=== PATIENT | female | born 1950 | race Caucasian/White ===

== ENCOUNTER → 2016-12-31 | Outpatient (CLI) | payer MEDICARE, MEDICAID ==
[~2016-12-31] MED LIST: ASPI-496 PO; ATOR40TA78 PO; METO25TA2 PO; REGADENOSON 0.4 MG/5 ML SYRINGE ONE; TRAM50TA2 PO
== END | disposition home or self-care (01) ==
LOC: CFH 07:50
PROVIDERS: ATTEND Internal Medicine Cardiovascular Disease
DX: I08.3 Combined rheumatic disorders of mitral, aortic and tricuspid valves (principal); I37.1 Nonrheumatic pulmonary valve insufficiency; I51.7 Cardiomegaly; I25.2 Old myocardial infarction; Z95.5 Presence of coronary angioplasty implant and graft; Z86.73 Personal history of transient ischemic attack (TIA), and cerebral infarction without residual deficits
CPT/HCPCS: 78452; 93017; 93306; A9502; J2785

== ENCOUNTER 2017-05-30 11:21 | Emergency (ER) | payer MEDICARE, MEDICAID ==
[~2017-05-30] VITALS: Ht 157.5 cm; Wt 85.2 kg
[~2017-05-30 11:21] MED LIST changes: -REGADENOSON 0.4 MG/5 ML SYRINGE ONE
[2017-05-30 11:36] VITALS: BP 140/79
== END 2017-05-30 12:46 | disposition home or self-care (01) ==
LOC: ED 12:40
DX: R22.9 Localized swelling, mass and lump, unspecified (principal); I25.2 Old myocardial infarction; Z86.73 Personal history of transient ischemic attack (TIA), and cerebral infarction without residual deficits
CPT/HCPCS: 99281

== ENCOUNTER → 2017-07-16 | Outpatient (CLI) | payer MEDICARE, MEDICAID | END | disposition home or self-care (01) | LOC: CFH 12:42 | PROVIDERS: ATTEND Surgery | DX: N60.01 Solitary cyst of right breast (principal); Z80.3 Family history of malignant neoplasm of breast ==

== ENCOUNTER 2017-08-26 09:02 | Emergency (ER) | payer MEDICARE, MEDICAID ==
[~2017-08-26] VITALS: Ht 154.9 cm; Wt 80.9 kg
[2017-08-26 09:08] VITALS: BP 116/83
== END 2017-08-26 10:44 | disposition home or self-care (01) ==
LOC: ED 09:51
DX: J20.9 Acute bronchitis, unspecified (principal); J02.9 Acute pharyngitis, unspecified; I25.2 Old myocardial infarction
CPT/HCPCS: 71046; 99284

== ENCOUNTER 2018-07-21 10:15 | Emergency (ER) | payer MEDICARE, MEDICAID ==
[~2018-07-21] VITALS: Ht 154.9 cm; Wt 84.7 kg
[2018-07-21 10:34] VITALS: BP 160/87
== END 2018-07-21 11:50 | disposition home or self-care (01) ==
LOC: ED 11:45
DX: G56.02 Carpal tunnel syndrome, left upper limb (principal); I25.2 Old myocardial infarction; Z87.891 Personal history of nicotine dependence
CPT/HCPCS: 29260; 99283

== ENCOUNTER → 2018-07-21 | Outpatient (CLI) | payer MEDICARE, MEDICAID | END | disposition home or self-care (01) | LOC: RAD 09:19 | PROVIDERS: ATTEND Nurse Practitioner Family | DX: M51.37 Other intervertebral disc degeneration, lumbosacral region (principal); M48.56XA Collapsed vertebra, not elsewhere classified, lumbar region, initial encounter for fracture | CPT/HCPCS: 72110 ==

== ENCOUNTER 2018-10-23 11:59 | Emergency (ER) | payer MEDICARE, MEDICAID ==
[~2018-10-23] VITALS: Ht 157.5 cm; Wt 85.1 kg
[2018-10-23 12:03] VITALS: BP 149/108
--- NOTE | 2018-10-23 13:15 | NUR ---
D/C INSTRUCTIONS, RX, AND F/U APPT RV'WD WITH PT, PT VERBALIZES UNDERSTANDING. AMBULATED OUT OF ED WITHOUT DIFFICULTY.
== END 2018-10-23 13:18 | disposition home or self-care (01) ==
LOC: ED 13:05
DX: L02.416 Cutaneous abscess of left lower limb (principal); I25.2 Old myocardial infarction
CPT/HCPCS: 10060; 99283

== ENCOUNTER → 2020-01-11 | Outpatient (CLI) | payer MEDICARE, MEDICAID ==
[2020-01-11 10:27] LABS: BASOPHILS # (AUTO) 0.03 x10^3/uL (0-0.1); BASOPHILS % (AUTO) 1 % (0-1); EOSINOPHILS # (AUTO) 0.19 x10^3/uL (0-0.4); EOSINOPHILS % (AUTO) 3 % (1-7); LYMPHOCYTES % (AUTO) 27 % (22-44); MD NO; MEAN CORPUSCULAR HGB CONC 32.4 g/dL (32.4-35.8); MEAN CORPUSCULAR VOLUME 86.4 fL (80-100); MEAN PLATELET VOLUME 8.7 fL (7.4-10.4); MONOCYTES # (AUTO) 0.34 x10^3/uL (0.2-0.8); MONOCYTES % (AUTO) 6 % (2-9); NEUTROPHILS # (AUTO) 3.42 x10^3/uL (1.8-6.8); NEUTROPHILS % (AUTO) 63 % (42-75); PLATELET COUNT 246 x10^3/uL (130-400); RED BLOOD COUNT 5.31 x10^6/uL (3.82-5.3); RED CELL DISTRIBUTION WIDTH 13.6 % (9.6-15.2)
== END | disposition home or self-care (01) ==
LOC: LAB 09:51
PROVIDERS: ATTEND Nurse Practitioner Family
DX: I25.10 Atherosclerotic heart disease of native coronary artery without angina pectoris (principal); I10 Essential (primary) hypertension; R51 Headache; M85.9 Disorder of bone density and structure, unspecified
CPT/HCPCS: 36415; 85025

== ENCOUNTER 2020-02-06 09:00 | Emergency (ER) | payer MEDICARE, MEDICAID ==
[~2020-02-06] VITALS: Ht 157.5 cm; Wt 81.6 kg
[2020-02-06 09:05] VITALS: BP 151/85
--- NOTE | 2020-02-06 10:01 | NUR ---
PT RESTING IN [facility]. PT'S AOX4. RESPS EVEN AND UNLABORED.
--- NOTE | 2020-02-06 10:16 | NUR ---
LAB AT BEDSIDE AT THIS TIME.
[2020-02-06 10:34] LABS: BASOPHILS # (AUTO) 0.02 x10^3/uL (0-0.1); BASOPHILS % (AUTO) 1 % (0-1); EOSINOPHILS # (AUTO) 0.25 x10^3/uL (0-0.4); EOSINOPHILS % (AUTO) 5 % (1-7); LYMPHOCYTES # (AUTO) 1.27 x10^3/uL (1-3.4); LYMPHOCYTES % (AUTO) 27 % (22-44); MD NO; MEAN CORPUSCULAR HEMOGLOBIN 27.8 pg (27.0-34.8); MEAN CORPUSCULAR HGB CONC 32.5 g/dL (32.4-35.8); MEAN CORPUSCULAR VOLUME 85.7 fL (80-100); MEAN PLATELET VOLUME 8.8 fL (7.4-10.4); MONOCYTES # (AUTO) 0.34 x10^3/uL (0.2-0.8); MONOCYTES % (AUTO) 7 % (2-9); NEUTROPHILS # (AUTO) 2.89 x10^3/uL (1.8-6.8); NEUTROPHILS % (AUTO) 61 % (42-75); PLATELET COUNT 244 x10^3/uL (130-400); RED BLOOD COUNT 5.25 x10^6/uL (3.82-5.3); RED CELL DISTRIBUTION WIDTH 13.3 % (9.6-15.2)
[2020-02-06 10:49] LABS: ANION GAP 6 mmol/L (5-15); CHLORIDE 109 mmol/L (98-107)
--- NOTE | 2020-02-06 11:45 | NUR ---
Patient given discharge instructions and they have confirmed that they understand the instructions. Patient ambulatory with steady gait.
== END 2020-02-06 11:46 | disposition home or self-care (01) ==
LOC: ED 09:27
DX: L03.032 Cellulitis of left toe (principal); Z87.891 Personal history of nicotine dependence
CPT/HCPCS: 36415; 80048; 85025; 99283; 99284

== ENCOUNTER 2020-02-15 13:15 | Emergency (ER) | payer MEDICARE, MEDICAID ==
[~2020-02-15] VITALS: Ht 157.5 cm; Wt 80.7 kg
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
[2020-02-15 13:54] VITALS: BP 126/61
--- NOTE | 2020-02-15 15:05 | NUR ---
PT AMBULATORY TO RN DESK, FULLY DRESSED, REQUESTING DC. DC INSTRUCTIONS DISCUSSED W/ PT; UNDERSTANDING VERBALIZED.
== END 2020-02-15 15:12 | disposition home or self-care (01) ==
LOC: ED 14:21
DX: L03.313 Cellulitis of chest wall (principal); Z87.891 Personal history of nicotine dependence
CPT/HCPCS: 99283

== ENCOUNTER → 2020-02-19 | Outpatient (CLI) | payer MEDICARE, MEDICAID | END | disposition home or self-care (01) | LOC: CFH 12:13 | PROVIDERS: ATTEND Nurse Practitioner Family | DX: R92.1 Mammographic calcification found on diagnostic imaging of breast (principal) | CPT/HCPCS: 77066; G0279 ==

== ENCOUNTER 2020-05-14 07:21 | Emergency (ER) | payer MEDICARE, MEDICAID ==
[~2020-05-14] VITALS: Ht 154.9 cm; Wt 72.0 kg
--- NOTE | 2020-05-14 07:40 | NUR ---
PT TO XRAY.
--- NOTE | 2020-05-14 08:05 | NUR ---
PT BACK FROM XRAY. SITTING IN BED WATCHING TV, NAD, VSS. NO ADDITIONAL NEEDS AT THIS TIME. CALL LIGHT WITHIN REACH, FALL PRECAUTIONS IN PLACE. NO ADDITIONAL NEEDS AT THIS TIME.
[2020-05-14 09:02] VITALS: BP 138/75
--- NOTE | 2020-05-14 09:02 | NUR ---
PT SITTING IN BED COMFORTABLY. NAD, VSS. ERP AT BEDSIDE DISCUSSING D/C PLAN AND FOLLOW UP. CALL LIGHT WITHIN REACH, FALL PRECAUTIONS IN PLACE. NO ADDITIONAL NEEDS AT THIS TIME.
--- NOTE | 2020-05-14 09:21 | NUR ---
Patient given discharge instructions and they have confirmed that they understand the instructions. Patient ambulatory with steady gait.
== END 2020-05-14 09:24 | disposition home or self-care (01) ==
LOC: ED 08:44
DX: S22.080A Wedge compression fracture of T11-T12 vertebra, initial encounter for closed fracture (principal); S32.010A Wedge compression fracture of first lumbar vertebra, initial encounter for closed fracture; S32.050A Wedge compression fracture of fifth lumbar vertebra, initial encounter for closed fracture; I25.2 Old myocardial infarction; Z86.73 Personal history of transient ischemic attack (TIA), and cerebral infarction without residual deficits; Z86.718 Personal history of other venous thrombosis and embolism; W18.30XA Fall on same level, unspecified, initial encounter; Y93.89 Activity, other specified; Y92.099 Unspecified place in other non-institutional residence as the place of occurrence of the external cause; Y99.8 Other external cause status
CPT/HCPCS: 72110; 72190; 99284

== ENCOUNTER 2020-05-22 08:59 | Emergency (ER) | payer MEDICARE, MEDICAID ==
[~2020-05-22] VITALS: Ht 154.9 cm; Wt 71.0 kg
[2020-05-22 09:11] VITALS: BP 146/90
[2020-05-22] MEDS ORDERED: HYDROcodone/APAP 5/325 TABLET PO ONE (10:00)
[2020-05-22] MEDS ORDERED: HYDROcodone/APAP 5/325 TABLET ONE (10:17)
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
--- NOTE | 2020-05-22 10:45 | NUR ---
PT STATES SOME IMPROVEMENT SINCE MEDICATED.
== END 2020-05-22 10:47 | disposition home or self-care (01) ==
LOC: ED 10:22
DX: S32.019A Unspecified fracture of first lumbar vertebra, initial encounter for closed fracture (principal); S32.049A Unspecified fracture of fourth lumbar vertebra, initial encounter for closed fracture; S32.059A Unspecified fracture of fifth lumbar vertebra, initial encounter for closed fracture; S22.089A Unspecified fracture of T11-T12 vertebra, initial encounter for closed fracture; I10 Essential (primary) hypertension; I25.2 Old myocardial infarction; Z86.73 Personal history of transient ischemic attack (TIA), and cerebral infarction without residual deficits; W18.30XA Fall on same level, unspecified, initial encounter; Y93.89 Activity, other specified; Y92.89 Other specified places as the place of occurrence of the external cause; Y99.8 Other external cause status
CPT/HCPCS: 99283

== ENCOUNTER 2020-10-11 11:03 | Emergency (ER) | payer MEDICARE, MEDICAID ==
[~2020-10-11] VITALS: Ht 157.5 cm; Wt 80.0 kg
[2020-10-11] MEDS ORDERED: HYDROcodone/APAP 5/325 TABLET ONE (11:18)
[2020-10-11] MEDS ORDERED: PLEASE ENTER HEIGHT AND WEIGHT MC SCH (11:30)
[2020-10-11] MEDS ORDERED: HYDROcodone/APAP 5/325 TABLET PO ONE (11:30)
--- NOTE | 2020-10-11 12:12 | NUR ---
PT RESTING ON GURNEY, REPORTS NO PAIN RELIEF AFTER PAIN MED.
[2020-10-11 12:25] LABS: BASOPHILS % (AUTO) 1 % (0-1); EOSINOPHILS % (AUTO) 2 % (1-7); LYMPHOCYTES % (AUTO) 24 % (22-44); MD NO; MEAN CORPUSCULAR HEMOGLOBIN 29.8 pg (27.0-34.8); MEAN CORPUSCULAR HGB CONC 33.3 g/dL (32.4-35.8); MONOCYTES % (AUTO) 5 % (2-9); NEUTROPHILS % (AUTO) 68 % (42-75); PLATELET COUNT 221 x10^3/uL (130-400); RED BLOOD COUNT 4.79 x10^6/uL (3.82-5.3)
[2020-10-11 12:31] LABS: ANION GAP 5 mmol/L (5-15); CALCIUM 9.3 mg/dL (8.5-10.1); CHLORIDE 111 mmol/L (98-107)
[2020-10-11 13:24] VITALS: BP 187/87
== END 2020-10-11 13:27 | disposition home or self-care (01) ==
LOC: ED 11:27
DX: R07.89 Other chest pain (principal); R00.1 Bradycardia, unspecified; I10 Essential (primary) hypertension; I25.2 Old myocardial infarction; Z86.73 Personal history of transient ischemic attack (TIA), and cerebral infarction without residual deficits; W01.0XXA Fall on same level from slipping, tripping and stumbling without subsequent striking against object, initial encounter; Y93.89 Activity, other specified; Y92.410 Unspecified street and highway as the place of occurrence of the external cause; Y99.8 Other external cause status
CPT/HCPCS: 36415; 71045; 71120; 80048; 85025; 93005; 99285